=== PATIENT | female | born 1950 | race Caucasian/White ===

== ENCOUNTER 2018-02-13 11:21 | Emergency (ER) | payer MEDICARE, BC ==
[2018-02-13 11:32] VITALS: BP 140/72
--- NOTE | 2018-02-13 11:44 | UC ---
Dizzy HPI HPI Summary: Sudden onset about 1 hour ago of dizziness and nausea. Occurred while driving. Feels "off". Denies chest pain, shortness of breath, sweats, headache, visual disturbances. Reports her mouth feels very dry and her lips feel numb. Denies any weakness. - History Of Current Complaint Chief Complaint: UCDizziness Stated Complaint: DIZZY DISORIENTED Time Seen by Provider: 02/13/18 11:24 Hx Obtained From: Patient Onset/Duration: Sudden Onset, Lasting Hours, Still Present Timing: Constant Severity Initially: Moderate Severity Currently: Moderate Pain Intensity: 0 Pain Scale Used: 0-10 Numeric Character: Lightheaded, Dizzy Aggravating Factor(s): Nothing Alleviating Factor(s): Nothing Associated Signs And Symptoms: Positive: Nausea. Negative: Vomiting, Chest Pain , SOB, Palpitations, Visual Changes - Allergies/Home Medications Allergies/Adverse Reactions: Allergies Allergy/AdvReac Type Severity Reaction Status Date / Time No Known Allergies Allergy Verified 02/13/18 11:32 Home Medications: Home Medications Estradiol VAGINAL TAB(NF) [Vagifem] 10 mcg VAGINAL WEEKLY 02/13/18 [History Confirmed 02/13/18] PMH/Surg Hx/FS Hx/Imm Hx Cancer History: Breast Cancer - Surgical History Surgical History: Yes Surgery Procedure, Year, and Place: LUMPECTOMY RIGHT 2005. splenectomy - Family History Known Family History: Negative: Hypertension - Social History Alcohol Use: Occasionally Substance Use Type: None Smoking Status (MU): Former Smoker When Did the Patient Quit Smoking/Using Tobacco: 20 yrs ago Review of Systems Constitutional: Fatigue Respiratory: Negative Cardiovascular: Negative Gastrointestinal: Nausea Neurological: Paresthesia, Other - dizzy All Other Systems Reviewed And Are Negative: Yes Physical Exam Triage Information Reviewed: Yes Appearance: Well-Appearing, No Pain Distress, Well-Nourished Vital Signs: Initial Vital Signs Temp 97.0 F 02/13/18 11:26 Pulse 108 02/13/18 11:26 Resp 16 02/13/18 11:26 BP 140/72 02/13/18 11:26 Pulse Ox 96 02/13/18 11:26 Vital Signs Reviewed: Yes Eyes: Positive: Conjunctiva Clear ENT: Positive: Hearing grossly normal, Other - mucous membranes dry Neck: Positive: Supple Respiratory Exam: Normal Cardiovascular: Positive: Tachycardia Abdomen Description: Positive: Soft Musculoskeletal: Positive: No Edema Neurological: Positive: Alert, Muscle Tone Normal, Other: - CN II-XII GROSSLY INTACT BILATERALLY. DEVULCANIZER HEAD STRENGTH 5/5 Psychological: Positive: Age Appropriate Behavior Skin: Negative: rashes Diagnostics - EKG Cardiac Rate: Tachycardia - 103 BPM Cardiac Rhythm: Sinus: Normal Ectopy: None ST Segment: Normal Dizzy Course/Dx - Course Course Of Treatment: TO [facility] BY AMBULANCE - Differential Dx/Diagnosis Provider Diagnoses: DIZZY - Physician Notifications Discussed Patient Care With: Narda Mora - TO [facility] BY AMBULANCE Time Discussed With Above Provider: 12:05 Instructed by Provider To: MD Will See In ED Discharge - Sign-Out/Discharge Documenting (check all that apply): Patient Departure All imaging exams completed and their final reports reviewed: No Studies - Discharge Plan Condition: Stable Disposition: TRANS HIGHER LVL OF CARE FAC Referrals: Dimitri Cespedes MD [Medical Doctor] - - Billing Disposition and Condition Condition: STABLE Disposition: Trans Higher Lvl of Care Fac
== END 2018-02-13 11:55 | disposition short-term general hospital (02) ==
LOC: UCEAST 11:21
DX: R42 Dizziness and giddiness (principal); Z87.891 Personal history of nicotine dependence
CPT/HCPCS: 93005; 99203; G0463

== ENCOUNTER 2018-02-13 12:17 | Observation (INO) | payer MEDICARE, BC ==
--- NOTE | 2018-02-13 13:09 | ED ---
Neurological HPI - HPI Summary HPI Summary: This patient is a 67 year old F presenting to [facility] accompanied by her friend with a chief complaint of FND since 929. She endorses dizziness, numbness around her mouth/lips, nausea, intense thirst, and tongue swelling. She notes recent travel to [place] and [place]. Pt endorses difficulty ambulating due to unsteadiness on her feet. The patient denies MINOR, visual changes, CP, SOB, and peripheral edema. She denies PMHx CVA, HTN, and DM. - History of Current Complaint Chief Complaint: EDNeurologicalDeficit Stated Complaint: DIZZINESS/NUMBNESS Hx Obtained From: Patient Onset/Duration: Sudden Onset, Started hours ago, Still Present Timing: Constant Onset Severity: Mild Current Severity: Mild Neurological Deficit Location: Generalized - unsteady, dizzy, Facial - numbness Pain Intensity: 0 Pain Scale Used: 0-10 Numeric Character: Dizzy, Numbness/Tingling Aggravating: Unknown Alleviating: Nothing Associated Signs and Symptoms: Positive: Unsteady Gait, Dizziness, Numbness, Nausea/Vomiting - nausea. Negative: Visual Changes, Headache, Fever, Chest Pain , Shortness of Breath - Allergy/Home Medications Allergies/Adverse Reactions: Allergies Allergy/AdvReac Type Severity Reaction Status Date / Time No Known Allergies Allergy Verified 02/13/18 11:32 PMH/Surg Hx/FS Hx/Imm Hx Endocrine/Hematology History: Denies: Hx Diabetes, Hx Sickle Cell Disease Cardiovascular History: Denies: Hx Hypertension History: Denies: Hx Dialysis Musculoskeletal History: Reports: Hx of Fracture(s) - jaw Sensory History: Denies: Hx Legally Blind, Hx Deafness Opthamlomology History: Denies: Hx Legally Blind EENT History: Denies: Hx Deafness Neurological History: Reports: Hx Peripheral Neuropathy Denies: Hx CVA Psychiatric History: Denies: Hx Schizophrenia - Cancer History Cancer Type, Location and Year: Breast Hx Chemotherapy: Yes Hx Radiation Therapy: Yes - Surgical History Surgery Procedure, Year, and Place: LUMPECTOMY RIGHT 2005. splenectomy Infectious Disease History: No Infectious Disease History: Denies: Traveled Outside the [place] in Last 30 Days - Family History Known Family History: Negative: Hypertension - Social History Occupation: Retired Lives: Alone Alcohol Use: Occasionally Substance Use Type: Reports: None Substance Use Comment - Amount & Last Used: CBD oil Smoking Status (MU): Former Smoker Review of Systems Negative: Fever Negative: Blurred Vision, Diplopia Positive: Other - tongue swelling. Negative: Sore Throat Negative: Chest Pain Negative: Shortness Of Breath Positive: Nausea. Negative: Abdominal Pain, Other - blood in stool Positive: burning - 3-4 months. Negative: hematuria Positive: Arthralgia - left mandible, Myalgia - chronic back. Negative: Edema Negative: Bruising Neurological: Other - Dizziness Positive: Numbness - mouth. Negative: Headache All Other Systems Reviewed And Are Negative: No Physical Exam - Summary Physical Exam Summary: Appearance: Alert, conversive, nontoxic appearing Skin: Warm, dry, no mottling, no rashes, no contusions HEENT: EOMI, PERRL, moist mucous membranes Neck: No masses on the neck, supple Respiratory: Clear to auscultation, breath sounds present, no rales, no rhonchi , no wheezes Cardiovascular: RRR, pulses are symmetrical in both lower and upper extremities. Mild systolic murmur 1/6. Abdomen: Soft, non-tender Bowel Sounds: Present Musculoskeletal: No CVA tenderness, no obvious deformity, moving all extremities in a grossly normal manner Neurological: A&Ox3, CN II-XII Intact, moving all extremities symmetrically Psychiatric: Normal affect and mood Triage Information Reviewed: Yes Vital Signs On Initial Exam: Initial Vitals Temp Pulse Resp BP Pulse Ox 97.3 F 108 17 171/78 97 02/13/18 12:23 02/13/18 12:23 02/13/18 12:23 02/13/18 12:23 02/13/18 12:23 Vital Signs Reviewed: Yes - [place] Coma Scale Best Eye Response: 4 - Spontaneous Best Motor Response: 6 - Obeys Commands Best Verbal Response: 5 - Oriented Coma Scale Total: 15 Diagnostics - Vital Signs Vital Signs Temp Pulse Resp BP Pulse Ox 02/13/18 12:23 97.3 F 108 17 171/78 97 - Laboratory Result Diagrams: 02/13/18 14:25 02/13/18 14:26 Lab Statement: Any lab studies that have been ordered have been reviewed, and results considered in the medical decision making process. - CT Brain CT Interpretation: No Acute Changes CT Interpretation Completed By: Radiologist - NO EVIDENCE FOR GROSS ACUTE INFARCT, MASS EFFECT OR HEMORRHAGE. Dr. Rodriguez has reviewed this report. CTA head/neck CT Interpretation: No Acute Changes CT Interpretation Completed By: Radiologist - No intracranial arterial occlusion or hemodynamically significant stenosis. No occlusion or hemodynamically significant stenosis in the arteries of the neck. Dr. Rodriguez has reviewed this report. - EKG 1424 Cardiac Rate: NL - 93 EKG Rhythm: Sinus Rhythm ST Segment: Normal Ectopy: None EKG Interpretation: nl ekg NIH Scale - NIH Scale Level of Consciousness: Alert/Keenly Responsive Ask Patient the Month and His/Her Age: Both Correct Ask Pt to Open/Close Eyes and [place]/Release Non-Paretic Hand: Both Correctly Best Gaze (Only Horizontal Eye Movement): Normal Visual Field Testing: No Visual Loss Facial Paresis-Pt to Smile & Close Eyes or Grimace Symmetry: Normal/Symmetrical Motor Function - Right Arm: No Drift-Holds 10 Seconds Motor Function - Left Arm: No Drift-Holds 10 Seconds Motor Function - Right Leg: No Drift-Holds 10 Seconds Motor Function - Left Leg: No Drift-Holds 10 Seconds Limb Ataxia-Must be out of Proportion to Weakness Present: Absent Sensory (Use Pinprick to Test Arms/Legs/Trunk/Face): Normal Best Language (Describe Picture, Name Items): No Aphasia Dysarthria (Read Several Words): Normal Extinction and Inattention: No Abnormality Total Score: 0 Re-Evaluation - Re-Evaluation First Eval Re-Evaluation Time: 15:39 Change: Improved Comment: Pt feels much better now after fluids. Discussed implications of hypo and hyperkalemia. Pt endorsed concern over sx and not having answers. She endorses concern over significant difficulty walking. Second Eval Re-Evaluation Time: 19:11 Change: Unchanged Comment: Discussed (-) CTA, discharge. Pt was still insistant on further testing /refuses discharge. Pt will be admitted for MRI tomorrow AM. Course/Dx - Course Course Of Treatment: A 67 y/o F presents to the ED with FND (numbness around mouth), dizziness, and intense thirst. She endorses burning with urination. A CT brain was (-). A CTA head/neck was (-). Discussed (-) CTA, discharge. Pt was still insistant on further testing/refuses discharge. Pt will be admitted for MRI tomorrow AM. - Diagnoses Provider Diagnoses: Dizziness - Physician Notifications Discussed Care Of Patient With: Ana Maria Mcmahan Time Discussed With Above Provider: 19:36 Instructed by Provider To: Other - Accepts admission. Discharge - Sign-Out/Discharge Documenting (check all that apply): Patient Departure - admit - Discharge Plan Condition: Stable Disposition: ADMITTED TO [facility] Referrals: No Primary Care Phys,NOPCP [Primary Care Provider] - - Attestation Statements Document Initiated by Scribe: Yes Documenting Scribe: Latrell Stevens Provider For Whom Scribe is Documenting (Include Credential): Dr. Shanna Rodriguez MD Scribe Attestation: Latrell Vieyra, scribed for Dr. Shanna Rodriguez MD on 02/13/18 at 1935.
[2018-02-13] MEDS ORDERED: NS 0.9% 1000 ML* 1,000 ML IV ONE ×2 (13:11→15:57)
--- NOTE | 2018-02-13 14:04 | RAD ---
INDICATION: Dizziness. COMPARISON: Comparison is made with a prior CT of the brain from May 13, 2009. TECHNIQUE: Contiguous axial sections of the brain were obtained from the skull base to the vertex without contrast. FINDINGS: The ventricles, cisterns and sulci are within normal limits. No significant focal abnormality or mass effect is seen. There is no evidence for hemorrhage. No significant focal osseous abnormality is seen. The visualized portion of the paranasal sinuses and mastoid air cells appear clear. IMPRESSION: NO EVIDENCE FOR GROSS ACUTE INFARCT, MASS EFFECT OR HEMORRHAGE.
[2018-02-13 14:37] LABS: ABS Basophils 0.1 10^3/ul (0-0.2); ABS Eosinophils 0 10^3/ul (0-0.6); ABS Lymphocytes 1.5 10^3/ul (1.0-4.8); ABS Monocytes 0.6 10^3/ul (0-0.8); ABS Neutrophils 11.7 10^3/ul (1.5-7.7); ABS Nucleated RBC 0 10^3/ul; Eosinophil % 0.1 % (0-6); Hematocrit 40 % (35-47); Hemoglobin 13.6 g/dl (12.0-16.0); Mean Corpuscular HGB Conc 34 g/dl (31-36); Mean Corpuscular Hemoglobin 32 pg (27-31); Mean Corpuscular Volume 93 fL (80-97); Mean Platelet Volume 9.2 um3 (7.4-10.4); Nucleated Red Blood Cells % 0; Platelet Count 309 10^3/ul (150-450); Red Blood Count 4.31 10^6/ul (4.00-5.40); Red Cell Distribution Width 14 % (10.5-15); White Blood Count 13.9 10^3/ul (3.5-10.8)
[2018-02-13 15:01] LABS: EGFR Non-African American 103.4 (>60)
[2018-02-13] MEDS ORDERED: Iohexol 350* (CONTRAST) 500 ML MDV IV ONE (16:12)
[2018-02-13 17:45] LABS: Urine Appearance Clear; Urine Blood Negative (Negative); Urine Color Yellow; Urine Ketones Negative (Negative); Urine Protein Negative (Negative); Urine Specific Gravity 1.009 (1.010-1.030); Urine Urobilinogen Negative (Negative)
--- NOTE | 2018-02-13 19:04 | RAD ---
EXAM: CT Angiography Head With Intravenous Contrast CLINICAL HISTORY: 67 years old, female; Signs and symptoms; Dizziness and giddiness TECHNIQUE: Axial computed tomographic angiography images of the head with intravenous contrast using CT angiography protocol. All CT scans at this facility use at least one of these dose optimization techniques: automated exposure control; mA and/or kV adjustment per patient size (includes targeted exams where dose is matched to clinical indication); or iterative reconstruction. 3D and MIP reconstructed images were created and reviewed. Coronal and sagittal reformatted images were created and reviewed. CONTRAST: 80 mL of OMNIPAQUE 350 administered intravenously. COMPARISON: No relevant prior studies available. FINDINGS: Right internal carotid artery: Calcific atherosclerotic changes of the intracranial right internal carotid artery without evidence of hemodynamically significant stenosis. No aneurysm. Right anterior cerebral artery: Unremarkable. No occlusion or significant stenosis. No aneurysm. Right middle cerebral artery: Unremarkable. No occlusion or significant stenosis. No aneurysm. Right posterior cerebral artery: Unremarkable. No occlusion or significant stenosis. No aneurysm. Right vertebral artery: Unremarkable as visualized. Left internal carotid artery: Calcific atherosclerotic changes of the intracranial left internal carotid artery without evidence of hemodynamically significant stenosis. No aneurysm. Left anterior cerebral artery: Unremarkable. No occlusion or significant stenosis. No aneurysm. Left middle cerebral artery: Unremarkable. No occlusion or significant stenosis. No aneurysm. Left posterior cerebral artery: Unremarkable. No occlusion or significant stenosis. No aneurysm. Left vertebral artery: Unremarkable as visualized. Basilar artery: Unremarkable. No occlusion or significant stenosis. No aneurysm. IMPRESSION: No intracranial arterial occlusion or hemodynamically significant stenosis. EXAM: CT Angiography Neck With Intravenous Contrast CLINICAL HISTORY: 67 years old, female; Signs and symptoms; Dizziness and giddiness TECHNIQUE: Axial computed tomographic angiography images of the neck with intravenous contrast using CT angiography protocol. All CT scans at this facility use at least one of these dose optimization techniques: automated exposure control; mA and/or kV adjustment per patient size (includes targeted exams where dose is matched to clinical indication); or iterative reconstruction. 3D and MIP reconstructed images were created and reviewed. Coronal and sagittal reformatted images were created and reviewed. CONTRAST: 80 mL of OMNIPAQUE 350 administered intravenously. 80 mL of OMNIPAQUE 350 administered intravenously. COMPARISON: No relevant prior studies available. FINDINGS: VASCULATURE: Right common carotid artery: Unremarkable. No significant stenosis. No dissection or occlusion. Right internal carotid artery: Unremarkable. Extracranial segment is patent with no significant stenosis. No dissection or occlusion. Right external carotid artery: Unremarkable. No occlusion. Right vertebral artery: Unremarkable. No significant stenosis. No dissection or occlusion. Left common carotid artery: Unremarkable. No significant stenosis. No dissection or occlusion. Left internal carotid artery: Unremarkable. Extracranial segment is patent with no significant stenosis. No dissection or occlusion. Left external carotid artery: Unremarkable. No occlusion. Left vertebral artery: Unremarkable. No significant stenosis. No dissection or occlusion. NECK: Bones/joints: No acute fracture. No dislocation. Soft tissues: Unremarkable as visualized. No mass. CAROTID STENOSIS REFERENCE USING NASCET CRITERIA: % ICA stenosis = (1 - narrowest ICA diameter/diameter of distal cervical ICA) x 100. Mild - <50% stenosis. Moderate - 50-69% stenosis. Severe - 70-94% stenosis. Near occlusion - 95-99% stenosis. Occluded - 100% stenosis. IMPRESSION: No occlusion or hemodynamically significant stenosis in the arteries of the neck.
[2018-02-13] MEDS ORDERED: Acetaminophen TAB* 325 MG PO PRN (20:26)
[2018-02-13] MEDS ORDERED: Aspirin 81 mg CHEW TAB* 81 MG TAB.CHEW PO ONE (20:26)
[2018-02-13] MEDS ORDERED: ALPRAZolam TAB* 0.25 MG PO ONE (20:26)
[2018-02-13] MEDS ORDERED: Ondansetron INJ* 2 MG/ML VIAL IV PRN (20:26)
[2018-02-13 21:50] LABS: ABS Basophils 0.1 10^3/ul (0-0.2); ABS Eosinophils 0 10^3/ul (0-0.6); ABS Lymphocytes 3.3 10^3/ul (1.0-4.8); ABS Monocytes 0.6 10^3/ul (0-0.8); ABS Neutrophils 6.8 10^3/ul (1.5-7.7); ABS Nucleated RBC 0 10^3/ul; Eosinophil % 0.3 % (0-6); Hematocrit 39 % (35-47); Lymphocyte % 30.5 % (25-47); Mean Corpuscular HGB Conc 33 g/dl (31-36); Mean Corpuscular Hemoglobin 31 pg (27-31); Mean Corpuscular Volume 95 fL (80-97); Mean Platelet Volume 9.1 um3 (7.4-10.4); Nucleated Red Blood Cells % 0.1; Platelet Count 279 10^3/ul (150-450); Red Blood Count 4.14 10^6/ul (4.00-5.40); Red Cell Distribution Width 14 % (10.5-15)
--- NOTE | 2018-02-13 21:50 | RAD ---
EXAM: MR Head Without Intravenous Contrast CLINICAL HISTORY: 67 years old, female; Signs and symptoms; Dizziness; Patient HX: Pt states she was driving and had sudden onset lightheadedness and dizziness, nausea, numbness around mouth and lips. Pt states she had "weird perception of where i was, wobbly to walk, just felt very very sick". Pt C/O dry mouth, chills; Additional info: ? Cerebellar CVA TECHNIQUE: Magnetic resonance images of the head/brain without intravenous contrast in multiple planes. COMPARISON: BRAIN WO CT BRAIN WO 02/13/2018 1:38 PM FINDINGS: Brain: No intracranial hemorrhage or extra-axial fluid collection. No evidence of mass effect or midline shift. No white matter abnormalities. No restricted diffusion to suggest acute infarct. Ventricles: Ventricles, cisterns, and sulci are normal. Bones/joints: Unremarkable. Sinuses: Unremarkable as visualized. No acute sinusitis. Mastoid air cells: Unremarkable as visualized. No mastoid effusion. Orbits: Unremarkable as visualized. IMPRESSION: No acute findings on MR Brain.
[2018-02-13 22:01] LABS: INR 0.9 (0.77-1.02)
[2018-02-13 22:07] LABS: EGFR Non-African American 114.7 (>60)
[2018-02-13] MEDS: Heparin VIAL(*) 5000 UNITS/ML VIAL (FIVE THOUSAND) SUBCUT SCH (23:06)
--- NOTE | 2018-02-14 01:34 | HP ---
HISTORY AND PHYSICAL: DATE OF ADMISSION: 02/13/18 PRIMARY CARE PROVIDER: None. ATTENDING PHYSICIAN WHILE IN THE HOSPITAL: Ana Maria Mcmahan DO * (report dictated by Jani Cho NP). CHIEF COMPLAINT: 1. Dizziness. 2. Not feeling well. HISTORY OF PRESENT ILLNESS: Mrs. Collier is a 67-year-old female patient. She carries a former history of smoking. She quite well over 30 years ago. She does not drink alcohol. She has a history of breast cancer, history of ITP, status splenectomy and status post thrombectomy for the breast cancer. She comes in today stating that she this morning got up, she took a full dropper of CBD oil that she said got from [facility]. She says that about an hour after this, she just felt weird. She felt dizzy. She was on her way down to [place]. She is making her way from [facility] down the [place] relocating. She does have history here in [place] and she was visiting her friends last week. She started driving and she just was feeling dizzy, felt lightheaded. She felt very nauseated. She felt in her words weird. She was concerned and went back to her friend's house, when she got there she was getting very anxious, she started shaking, she was having some numbness around her lips. The episode did subside, but she has noted when she has tried to standing up she felt very unsteady on her feet. She denied any visual changes. She said her mouth felt sick, but she says her speech was not slurred. She knew she was getting her words out appropriately. She denied any facial drooping or any weakness to one side. She says the symptoms did not get better with any position change. She said that she has not had any recent URI symptoms. No chest pain, shortness of breath. No abdominal pain. She did admit to the episodes of nausea, but with no vomiting. She was concerned. Her friend felt that she should be evaluated and requested the patient, so she came into the ER today, evaluated in the ED. There was concern for possible CVA and we were asked to evaluate for admission. PAST MEDICAL HISTORY: 1. Breast cancer. 2. ITP. PAST SURGICAL HISTORY: 1. She has had splenectomy. 2. Knee arthroscopy. 3. Lumpectomy. MEDICATIONS: Home medications include estradiol vaginal 10 mcg vaginally weekly. ALLERGIES TO MEDICATIONS: Include no known drug allergies. FAMILY HISTORY: Her mother had a history of CO and CVA. Father had a history of melanoma. SOCIAL HISTORY: She is a former smoker. She does occasionally drink alcohol. Surrogate decision maker is her friend, Lukas. REVIEW OF SYSTEMS: There is no documented fever. She denies having any significant weight change. There was no double vision. She denies having any ear discharge. She denied having any rhinorrhea. There was no sore throat. No thyroid enlargement. She denies having any chest pain. There was no orthopnea. There was no nocturnal dyspnea. She denies having any abdominal discomfort. She did admit to nausea with no vomiting or diarrhea. No dysuria, no frequency. There was no seizure. No loss of consciousness. No pruritus and no skin ulcerations. Review of 14 systems completed and all others negative. PHYSICAL EXAMINATION GENERAL: At this time, Mrs. Collier is a 67-year-old female patient. She is sitting in the ED stretcher. She appears to be well-nourished, well-developed. VITAL SIGNS: Blood pressure 125/65, pulse 85, respirations 14, O2 sat 95%, temperature 97.3. HEENT: Head: Atraumatic and normocephalic. Eyes: EOMs are intact. Sclerae anicteric, not pale. Throat: Oral mucosa appears to be moist. No oropharyngeal erythema. NECK: Supple. LUNGS: Clear to auscultation. There were no wheezes, rales, or rhonchi. HEART: Sounds S1, S2. She had a regular rate and rhythm. No murmur, rubs, or gallops. ABDOMEN: Soft. It was flat, nontender. Bowel sounds are present. EXTREMITIES: Pulses were 2+ throughout. She has been moving all 4 extremities with 5/5 strength. NEUROLOGICAL: The patient awake. She is alert. She is oriented x3. Cranial nerves II through XII were intact. Hfutmc-ba-sdoz and apow-zg-hbuf intact bilaterally. Food Tester were equal. Tongue midline. She had no gross focal deficits. No nystagmus on exam. Visual macario intact. Skin: Grossly intact. DIAGNOSTIC STUDIES/LAB DATA: WBC 13.8, RBC of 4.31, hemoglobin of 13.6, hematocrit of 40, platelet count of 309. Sodium was 138, potassium was 4.4, chloride of 104, bicarb 27, BUN 18, creatinine 0.58, glucose 121, calcium was 9.5, mag was 2.0. Total bili 0.6, AST 41, ALT 19, alk phos 59. Albumin was 4.1. TSH 1.08. Urine was obtained, it was negative. She had multiple imaging here in the ED starting out with the brain CT. Impression: No evidence for gross acute infarct, mass effect, or hemorrhage. She had a head CT obtained today, which showed no intracranial arterial occlusion or hemodynamically significant stenosis. Impression: The neck with no occlusion or hemodynamically significant stenosis from arteries of the neck. She had an EKG obtained today showing a normal sinus rhythm, rate of [address] elevations or T- wave inversions. Old medical records were reviewed. ASSESSMENT AND PLAN: Mrs. Collier is a 67-year-old female patient coming into the emergency department today with complaints of not feeling well in the setting using CBD oil, feeling dizzy, feeling lightheaded, feeling lightheaded, feeling nauseated. We were asked to evaluate for admission. She will be admitted under observation status. 1. Dizziness. I suspect the symptoms could be related to the CBD oil, possibly it is unclear what actually active ingredients were in the oil. She took a larger dose than what she normally takes. She generally takes this for arthritis pain; however, she does have some vascular risk factors. I do not think this is posterior stroke given the fact she is asymptomatic currently and her symptoms resolved. I am checking an MRI, however, to rule this out completely. If this is positive, I certainly would get in touch with Neurology. I am going to empirically treat her with 1 dose of aspirin. I will check lipids and an A1c in the morning. We will place her on telemetry. I will check orthostatics on the patient and we will continue to monitor. I am also checking an alcohol level and a U-tox. 2. Breast cancer. Continue her current medical regimen. She will need to establish PCP in [place] and follow up. 3. History of idiopathic thrombocytopenic purpura, platelets are stable. 4. DVT prophylaxis. She is high risk. We will place her on heparin subcu. 5. Code status. Full code. 6. Fluids, electrolytes, and nutrition: She can have regular diet. TIME SPENT: On this admission was approximately 60 minutes, greater than half time was spent [id number] with the patient obtaining my history and physical, other half time was spent going over the plan of care with the patient and implementing the plan of care. I did discuss the plan of care with my attending, Dr. Mcmahan, she is in agreement. JANI CHO, NUSRAT [id number]/CPS #: [id number] LIV
[2018-02-14] MEDS: Heparin VIAL(*) 5000 UNITS/ML VIAL (FIVE THOUSAND) SUBCUT SCH (05:22)
[2018-02-14 05:28] LABS: ABS Basophils 0.1 10^3/ul (0-0.2); ABS Eosinophils 0.1 10^3/ul (0-0.6); ABS Lymphocytes 3.5 10^3/ul (1.0-4.8); ABS Monocytes 0.6 10^3/ul (0-0.8); ABS Neutrophils 4.7 10^3/ul (1.5-7.7); ABS Nucleated RBC 0 10^3/ul; Eosinophil % 1.3 % (0-6); Hematocrit 36 % (35-47); Hemoglobin 12.2 g/dl (12.0-16.0); Lymphocyte % 38.9 % (25-47); Mean Corpuscular HGB Conc 34 g/dl (31-36); Mean Corpuscular Hemoglobin 32 pg (27-31); Mean Corpuscular Volume 94 fL (80-97); Nucleated Red Blood Cells % 0.1; Platelet Count 279 10^3/ul (150-450); Red Blood Count 3.85 10^6/ul (4.00-5.40); Red Cell Distribution Width 14 % (10.5-15)
[2018-02-14 05:34] LABS: INR 0.89 (0.77-1.02)
[2018-02-14 05:48] LABS: EGFR Non-African American 114.7 (>60)
--- NOTE | 2018-02-14 07:42 | PN ---
Subjective Date of Service: 02/14/18 Interval History: Ms. Collier denies any complaints. She feels back to baseline mentally. She is anxious but has had a chronic problem with anxiety for the past 3 years. She denies chest pain, SOB, nausea, or abdominal pain. Objective Active Medications: Acetaminophen (Tylenol Tab*) 650 mg PO Q4H PRN Heparin Sodium (Porcine) (Heparin Vial(*)) 5,000 units SUBCUT Q8HR ABHAY Ondansetron HCl (Zofran Inj*) 4 mg IV Q6H PRN Vital Signs: Temp Pulse Resp BP Pulse Ox 97.9 F 72 12 145/61 97 02/14/18 03:00 02/14/18 03:00 02/14/18 03:00 02/14/18 03:00 02/14/18 03:00 Oxygen Devices in Use Now: None Appearance: Female sitting up in bed in NAD Eyes: No Scleral Icterus Ears/Nose/Mouth/Throat: Mucous Membranes Moist Neck: Trachea Midline Respiratory: Symmetrical Chest Expansion and Respiratory Effort, Clear to Auscultation Cardiovascular: NL Sounds; No Murmurs; No JVD, No Edema Abdominal: NL Sounds; No Tenderness; No Distention Lymphatic: No Cervical Adenopathy Extremities: No Edema Skin: No Rash or Ulcers Neurological: Alert and Oriented x 3, NL Muscle Strength and Tone Nutrition: Taking PO's Result Diagrams: 02/14/18 05:13 02/14/18 05:13 Assess/Plan/Problems-Billing Assessment: Ms. Collier is a 67 yo F with a PMH of who was admitted on 02/13/18 with dizziness after taking CBD oil. - Patient Problems (1) Dizziness Comment: - Resolved. - Suspect secondary to CBD oil, perhaps contaminated with THC given description of symptoms. - CT brain negative, Head/Neck CTA negative, MRI brain negative. (2) DVT prophylaxis Status and Disposition: OBV. Discharge to home.
[2018-02-14 12:27] VITALS: BP 133/65
--- NOTE | 2018-02-14 14:57 | RAD ---
INDICATION: Dizziness COMPARISON: Chest x-ray dated July 08, 2006 TECHNIQUE: Single AP portable view of the chest was obtained. FINDINGS: Image quality is compromised due to the relative inferiority of a portable chest x-ray. Again seen are surgical clips overlying the lateral right chest and axilla. The lungs are grossly clear. There is no evidence of a large pleural effusion. Visualized bones are normal for the patient's age. IMPRESSION: No radiographic evidence for acute cardiopulmonary abnormality on this portable chest x-ray. R1
--- NOTE | 2018-02-15 04:11 | DS ---
HOSPITAL MEDICINE DISCHARGE SUMMARY: DATE OF ADMISSION: 02/13/18 DATE OF DISCHARGE: 02/14/18 PRIMARY CARE PROVIDER: None. ATTENDING PHYSICIAN: Dr. Vu Funez * (dictation provided by Linnea Turner NP ) PRIMARY DIAGNOSIS: Dizziness thought to be secondary to CBD oil. SECONDARY DIAGNOSES: 1. History of breast cancer. 2. Idiopathic thrombocytopenic purpura. PAST SURGICAL HISTORY: 1. History of splenectomy. 2. Knee arthroscopy. 3. Lumpectomy. MEDICATIONS: Home medications are unchanged, they are estradiol 10 mcg vaginally weekly. HOSPITAL COURSE: Ms. Collier is a 67-year-old female with no significant past medical history other than breast cancer and ITP, who presented to the hospital on 02/13/18 with concern for dizziness and not feeling well. Please see dictated H and P from Jani Cho NP, for complete details. The patient states that she had taken a new type of CBD oil and taken a full dropperful which is more than her normal amount. She reported that shortly after taking that she felt dizzy and nauseated. She thought that her words sounded weird. She felt very unsteady on her feet. She felt that her mouth was dry and her lips were tingly. She became very anxious as these symptoms developed and ultimately presented to the emergency room. In the emergency room, she had a CT brain, which showed no acute abnormality. She had labs that show white blood cell count of 13.9. Remainder of her labs were unremarkable. She did test positive for cannabinoids and benzodiazepines. Ms. Collier was placed on observation in the hospital overnight. Although, range of her workup included head and neck CTA, which showed no acute abnormality and that she also had an MRI of the brain which showed no acute abnormality. Ms. Collier is feeling better today. She states her symptoms are completely resolved. In reviewing the case again her, the symptoms did appear immediately after taking the CBD oil. It is our suspicion that perhaps the CBD oil was stronger than her normal. CBD oil perhaps that had THC in it, regardless her symptoms are just consistent with medication effect especially in the setting of recently taking that CBD. The patient states she takes CBD oil for history of rheumatoid arthritis or just regular arthritis and states it has been very helpful in the past, but given the symptoms associated with this that she plans to no longer use CBD oil. Ms. Collier is medically stable for discharge to home. DISPOSITION: Home. DIET: Regular. ACTIVITY: As tolerated. FOLLOWUP PLAN: Please follow up with your primary care physician when you return to [place] for continued management of arthritis and symptoms of anxiety. TIME SPENT: Approximately 60 minutes were spent in discharge of this patient, more than half time with the patient at the bedside reviewing the events leading up to and during this hospitalization, performing physical examination, and reviewing the plan of care. LINNEA TURNER NP [id number]/CPS #: [id number] LIV
== END 2018-02-14 15:10 | disposition home or self-care (01) ==
LOC: ED 12:17 → MEDTELE 20:23
PROVIDERS: ADMIT Hospitalist; ATTEND Internal Medicine
DX: R42 Dizziness and giddiness (principal); R11.0 Nausea; D69.3 Immune thrombocytopenic purpura; Z85.3 Personal history of malignant neoplasm of breast; Z79.899 Other long term (current) drug therapy; Z87.891 Personal history of nicotine dependence
CPT/HCPCS: 36415; 70450; 70496; 70498; 70551; 71045; 80048; 80053; 80061; 80307; 80320; 81003; 82565; 83036; 83735; 84443; 84484; 84520; 85025; 85610; 85730; 87040; 93005; 96360; 96361; 99284; A9270-GY; G0378; G0480; J1644; Q9967